=== PATIENT | male | born 1960 ===

== ENCOUNTER 2025-07-21 10:40 | Outpatient (AMB) | payer MEDICARE, SELFPAY ==
--- NOTE | 2025-07-21 10:42 | A.OFFVIS_ITS ---
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 He is c/o tremors. He reports the onset of a tremor in his right hand about a year ago, which started gradually. The tremor occurs both at rest and during activity, and it becomes more frequent when he is stressed or angry. He has difficulty with fine motor skills, which precipitated his recent assisted from his job as an cranberry grower in March. The patient also reports sleep disturbances, including kicking and shouting in his sleep for the last couple of years. He snores and experiences daytime sleepiness. He has never had a sleep study due to an aversion to wearing a mask. Past medical history is significant for nephrolithiasis, requiring prior CT scans of his kidneys. He had one brain MRI approximately 30 years ago, during which he had a traumatic experience where the machine broke, leading to significant anxiety about future MRI procedures. He also has a history of diabetes, glaucoma, and being overweight. 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 He does not know of any family history of Parkinson's disease. His mother at age 49. Review of Systems Narrative Constitutional:? No change in weight. Complain of high blood pressure. HEENT:? Wear glasses. Has sinus problems. Cardiovascular:?No chest pain, palpitations, orthopnea, PND, or leg swelling. Respiratory:?No cough, shortness of breath, wheezing, or hemoptysis. Gastrointestinal:?No nausea, vomiting, abdominal pain, diarrhea, or constipation. Genitourinary:? Frequency and urgency of urination. Musculoskeletal:? Leg cramping. Neurological:? Difficulty walking and tremor. Psychiatric:?No anxiety, depression, mood swings, sleep disturbance, or hallucinations. Endocrine:?No heat/cold intolerance, polydipsia, polyuria, or hair/skin changes. Hematologic/Lymphatic:?No easy bruising, bleeding, or lymphadenopathy. Integumentary (Skin):?No rash, lesions, itching, or color changes. Allergic/Immunologic:?No seasonal allergies, hives, or recurrent infections. Sleep: Kicking can shouting during sleep and snoring. During daytime he is tired and sleepy. Physical Exam Neuro Other: Mental Status: Alert and oriented to person, place, and time. Normal attention. Normal spontaneous speech, fluency, and comprehension. No obvious issues with mood and memory. Affect is appropriate. Cranial Nerves: CN II: Visual sanchez full to confrontation, visual acuity intact. CN III, IV, : Pupils equal, round, reactive to light and accommodation. Extraocular movements are normal. CN V: Facial sensation is normal. CN VII: Facial movements symmetrical. CN VIII: Hearing intact to bedside conversation is normal. CN IX, X: Palate elevates symmetrically. CN XI: Shoulder shrug and head turn symmetrical. CN XII: Tongue midline without atrophy or fasciculations. Motor: Bulk and tone normal in all extremities. No significant muscle weakness in arms and legs. No drift. Reflexes: Deep tendon reflexes 2+ and symmetric. Plantar response down-going bilaterally. Coordination: [id number] is okay. Gait and Station: Decreased arm swing. Extrapyramidal: Decreased facial expression blinking. Moderate right hand resting tremor with mild cogwheeling rigidity. Fine finger movements are slow on right side. Speech: Normal; no dysarthria or tremor. Assessment & Plan Assessment & Plan (1) Parkinson disease: Code(s): G20.A1 - Parkinson's disease without dyskinesia, without mention of fluctuations Category: Medical Qualifiers: Dyskinesia presence: without dyskinesia Fluctuating manifestations: wi th fluctuating manifestations Qualified Code(s): G20.A2 - Parkinson's disease without dyskinesia, with fluctuations (2) MICHAEL (obstructive sleep apnea): Code(s): G47.33 - Obstructive sleep apnea (adult) (pediatric) Category: Medical (3) REM sleep behavior disorder: Code(s): G47.52 - REM sleep behavior disorder Category: Medical Plan Impression: a: Parkinson disease b: Obstructive sleep apnea c: REM sleep behavior disorder Rec: a: Carbidopa/levodopa 25/100 tid b: DC Propranalol c: Home sleep study d: CT brain WO I informed the patient that his clinical presentation is consistent with Parkinson's disease, which is caused by a deficiency of dopamine in the brain. I explained that this is a slowly progressive condition. We discussed initiating a dopamine replacement medication, starting at a low dose three times a day, and I advised him of potential side effects including nausea and sleepiness. I instructed him to discontinue his prior medication for the tremor. Given his significant distress and past traumatic experience with an MRI, I cancelled the previously scheduled MRI and instead ordered a head CT to rule out other structural issues. We also discussed his sleep-related symptoms, and I recommended a home sleep study to evaluate for sleep apnea, reassuring him that alternative treatments to a CPAP mask are available. I provided the patient with a website for further reading on Parkinson's disease. Orders: Orders RT home sleep study Today G47.33 - Obstructive sleep apnea (adult) (pediatric) CT head/brain wo IV con Today G20.A2 - Parkinson's disease without dyskinesia, with fluctuations Medications: New carbidopa-levodopa 25-100 mg (Sinemet) 1 tab PO TID 270 tabs 1RF Coding Level of Care Code New Pt Level 4 (80876) Diagnoses Parkinson's disease without dyskinesia, with fluctuating manifestations G20.A2 Dyskinesia presence: without dyskinesia Fluctuating manifestations: with fluctuating manifestations MICHAEL (obstructive sleep apnea) G47.33 REM sleep behavior disorder G47.52
== END 2025-07-21 11:11 | disposition home or self-care (01) ==
PROVIDERS: PCP Internal Medicine; Visit Provider Psychiatry & Neurology Neurology
DX: G20.A2 Parkinson's disease without dyskinesia, with fluctuations (principal); G47.33 Obstructive sleep apnea (adult) (pediatric); G47.52 REM sleep behavior disorder
CPT/HCPCS: 99204

== ENCOUNTER → 2025-07-21 10:40 | Outpatient (BNVA) | payer MEDICARE, SELFPAY | PROVIDERS: PCP Internal Medicine; Visit Provider Psychiatry & Neurology Neurology | DX: G20.A2 Parkinson's disease without dyskinesia, with fluctuations (principal); G47.33 Obstructive sleep apnea (adult) (pediatric); G47.52 REM sleep behavior disorder | CPT/HCPCS: 99202 ==